=== PATIENT | male | born 1960 | race Caucasian/White ===

== ENCOUNTER 2017-05-30 15:45 | Emergency (ER) | payer MEDICARE | END 2017-05-30 16:11 | disposition home or self-care (01) | LOC: ER 15:45 | DX: S05.01XA Injury of conjunctiva and corneal abrasion without foreign body, right eye, initial encounter (principal); F32.9 Major depressive disorder, single episode, unspecified; Z85.46 Personal history of malignant neoplasm of prostate; Z79.899 Other long term (current) drug therapy; W45.8XXA Other foreign body or object entering through skin, initial encounter ==